=== PATIENT | male | born 1980 | race Caucasian/White ===

== ENCOUNTER 2017-10-09 00:10 | Emergency (ER) | payer OTHER ==
[2017-10-09] MEDS ORDERED: KETOROLAC TROMETHAMINE 30 MG/ML SOL IM ONE (00:31)
[2017-10-09] MEDS ORDERED: KETOROLAC TROMETHAMINE 30 MG/ML SOL ONE (00:36)
[2017-10-09 00:53] VITALS: TEMP 97.5
[2017-10-09 01:49] VITALS: BP 105/69; PULSE 57; RESP 14; O2SAT 95
== END 2017-10-09 01:38 | disposition home or self-care (01) | DRG 563 ==
LOC: ED 00:10
DX: S83.92XA Sprain of unspecified site of left knee, initial encounter (principal); W19.XXXA Unspecified fall, initial encounter
CPT/HCPCS: 73562; 99283; J1885

== ENCOUNTER 2018-05-05 11:11 | Emergency (ER) | payer OTHER ==
[2018-05-05 11:21] VITALS: BP 128/86; PULSE 74; RESP 18; TEMP 98.4; O2SAT 99
== END 2018-05-05 12:00 | disposition home or self-care (01) | DRG 563 ==
LOC: ED 11:11
DX: S66.911A Strain of unspecified muscle, fascia and tendon at wrist and hand level, right hand, initial encounter (principal)
CPT/HCPCS: 73100; 99282

== ENCOUNTER 2019-04-15 01:06 | Emergency (ER) | payer OTHER ==
[2019-04-15 01:16] VITALS: TEMP 98
[2019-04-15] MEDS ORDERED: SODIUM CHLORIDE 0.9% 500 ML 500 ML IV ONE ×2 (01:23→02:28)
[2019-04-15] MEDS ORDERED: SODIUM CHLORIDE 0.9% FLUSH 10 ML SOL IV PRN (01:45)
[2019-04-15 01:55] LABS: BASOPHILS % (AUTO) 1 % (0-3); EOSINOPHILS % (AUTO) 4 % (0-9); HEMATOCRIT 44 % (39-53); HEMOGLOBIN 15.2 gm/dl (13.5-17.7); LYMPHOCYTES % (AUTO) 23.2 % (10-50); MEAN CORPUSCULAR HGB CONC 34.8 gm/dl (32.0-36.0); MEAN CORPUSCULAR VOLUME 86 fL (80-100); MONOCYTES % (AUTO) 9.6 % (0-12); NEUTROPHILS % (AUTO) 62.3 % (37-80)
[2019-04-15 02:08] LABS: ALBUMIN 3.8 gm/dl (3.4-5.0); ALKALINE PHOSPHATASE 59 IU/L (46-116); ALT 51 IU/L (14-63); AST 17 IU/L (15-37); BILIRUBIN,TOTAL 0.8 mg/dl (0.2-1.0); BLOOD UREA NITROGEN 20 mg/dl (7-18); CARBON DIOXIDE 27.9 mEq/L (21-32); CHLORIDE 103 mMol/L (98-107); CREATININE 1.31 mg/dl (0.80-1.30); GLUCOSE 126 mg/dl (74-106); POTASSIUM 3.8 mMol/L (3.5-5.1); SODIUM 139 mMol/L (136-145); TOTAL PROTEIN 7.1 gm/dl (6.4-8.2)
[2019-04-15 02:09] LABS: ALCOHOL < 0.003 gm/dl (0.000-0.08)
[2019-04-15 02:10] LABS: MAGNESIUM 2.3 mg/dl (1.8-2.4); TROP I < 0.017 ng/ml (0.000-0.056)
[2019-04-15] MEDS ORDERED: SODIUM CHLORIDE 0.9% 1000ML 1,000 ML IV SCH (02:30)
[2019-04-15 04:26] LABS: APPEARANCE,URINE Clear; BILIRUBIN,URINE NEGATIVE (NEGATIVE); COLOR,URINE Yellow; GLUCOSE, URINE (UA) NEGATIVE (NEGATIVE); KETONES,URINE NEGATIVE (NEGATIVE); LEUKOCYTE ESTERASE ,URINE NEGATIVE (NEGATIVE); NITRATE,URINE NEGATIVE (NEGATIVE); OCCULT BLOOD,URINE NEGATIVE (NEG-TRACE); UROBILINOGEN,URINE 0.2 (0.2-1.0 EU)
[2019-04-15 04:36] LABS: AMPHETAMINES NEGATIVE (NEGATIVE); BACTERIA 1+ (< 1+); BARBITUATES NEGATIVE (NEGATIVE); BENZODIAZEPINES NEGATIVE (NEGATIVE); CANNABINOL(THC) NEGATIVE (NEGATIVE); COCAINE(COC) NEGATIVE (NEGATIVE); CRYSTALS NEGATIVE (0-3 AVE/HPF); EPITHELIAL CELLS NEGATIVE (SQUAMOUS); METHADONE NEGATIVE (NEGATIVE); METHAMPHETAMINES NEGATIVE (NEGATIVE); OPIATES(OPI) NEGATIVE (NEGATIVE); OXYCODONE(OXY) NEGATIVE (NEGATIVE); PROPOXYPHENE(PPX) NEGATIVE (NEGATIVE); RBC,URINE NEG (0-3AV/HPF); TRICYCLIC ANTIDEPRESSANTS NEGATIVE (NEGATIVE); WBC,URINE NEG (0-5AV/HPF)
[2019-04-15 04:52] VITALS: BP 117/75; PULSE 62; RESP 21; O2SAT 93
== END 2019-04-15 04:23 | disposition short-term general hospital (02) | DRG 312 ==
LOC: ED 01:06
DX: R55 Syncope and collapse (principal); I45.9 Conduction disorder, unspecified; E86.9 Volume depletion, unspecified; R11.0 Nausea; R42 Dizziness and giddiness; W18.39XA Other fall on same level, initial encounter
CPT/HCPCS: 70450; 70486; 72125; 80053; 80305; 80307; 81001; 83735; 84484; 85025; 85378; 93005; 96365; 96366; 99285; 99291